=== PATIENT | female | born 1965 | race Caucasian/White ===

== ENCOUNTER 2021-10-20 07:49 | Emergency (ER) | payer OTHER ==
[~2021-10-20] VITALS: Ht 167.6 cm; Wt 120.5 kg
[~2021-10-20 07:49] MED LIST: LEVO175T4 PO; UNK MEDS PO
[2021-10-20] MEDS ORDERED: BACITRACIN/POLYMYXIN B 3.5 GM OPHTHALMIC OINTMENT OU ONE (10:30)
[2021-10-20 11:01] VITALS: BP 147/86
== END 2021-10-20 11:02 | disposition home or self-care (01) ==
LOC: EMS 07:56
DX: H01.006 Unspecified blepharitis left eye, unspecified eyelid (principal); H01.003 Unspecified blepharitis right eye, unspecified eyelid; I10 Essential (primary) hypertension; E03.9 Hypothyroidism, unspecified
CPT/HCPCS: 99283